=== PATIENT | female | born 1955 | race Caucasian/White ===

== ENCOUNTER 2018-03-06 08:53 | Emergency (ER) | payer OTHER ==
--- NOTE | 2018-03-06 09:01 | PDOC ---
History of Present Illness - General Chief Complaint: Pain Stated Complaint: LEFT SIDE ABD PAIN Time Seen by Provider: 03/06/18 08:56 - History of Present Illness Initial Comments: 03/06/18 09:05 63yo female presents ambulatory for eval of L flank pain. States pain has been intermittently present x 10 days. No n/v. Has had episodes of loose stool and constipation. No f/c. No dysuria. No hematuria. No blood in stool. No new meds. No cp/sob. No cough. No rhinorrhea or sore throat. No vaginal complaints. Pt states pain was severe last night. States the pain kept her up and she called Dr. Beverly who recommended she come in for eval of flank pain. Hx of splenomegaly and myelofibrosis in the past. PMHx: myelofibrosis, splenomegaly PShx: Allergies: PCN Meds: ASA 03/06/18 09:08 PMD: [facility] ONC: Dr. Beverly Past History - Past Medical History Allergies/Adverse Reactions: Allergies Allergy/AdvReac Type Severity Reaction Status Date / Time Penicillins Allergy Rash Verified 03/06/18 08:55 Home Medications: Ambulatory Orders Aspirin 81 mg PO DAILY 08/23/12 Diabetes: No HTN: No - Suicide/Smoking/Psychosocial Hx Smoking Status: No Smoking History: Never smoked Years of Tobacco Use: 0 Number of Cigarettes Smoked Daily: 0 Review of Systems - Review of Systems Able to Perform ROS?: Yes Is the patient limited Gabonese proficient: No Constitutional: No: Chills, Fever HEENTM: No: Nose Pain, Nose Congestion, Throat Pain Respiratory: No: Cough, Shortness of Breath Cardiac (ROS): No: Chest Pain, Irregular Heart Rate ABD/GI: Yes: Constipated, Diarrhea, Abdominal cramping. No: Nausea, Vomiting : No: Burning, Dysuria, Hematuria Musculoskeletal: No: Back Pain Integumentary: No: Bruising Neurological: No: Headache, Numbness, Paresthesia All Other Systems: Reviewed and Negative *Physical Exam - Vital Signs 03/06/18 09:24 Selected Entries 03/06/18 08:54 Temperature 97.6 F Pulse Rate 74 Respiratory 20 Rate Blood Pressure 126/75 Blood Pressure 92 Mean O2 Sat by Pulse 100 Oximetry (%) Weight 58.513 kg - Physical Exam General Appearance: Yes: Nourished, Appropriately Dressed. No: Apparent Distress HEENT: positive: EOMI, Normal ENT Inspection Neck: positive: Supple Respiratory/Chest: positive: Lungs Clear, Normal Breath Sounds Cardiovascular: positive: Regular Rhythm, Regular Rate, S1, S2. negative: Edema Gastrointestinal/Abdominal: positive: Normal Bowel Sounds, Soft, Spleenomegaly. negative: Tender, Guarding, Rebound Musculoskeletal: positive: CVA Tenderness (L). negative: CVA Tenderness (R) Extremity: positive: Normal Capillary Refill, Normal Inspection, Normal Range of Motion. negative: Calf Tenderness Integumentary: positive: Normal Color, Dry, Warm Neurologic: positive: Fully Oriented, Alert, Normal Mood/Affect, Other ( ambulatory with a steady gait) ED Treatment Course - LABORATORY CBC & Chemistry Diagram: 03/06/18 09:25 03/06/18 09:25 Medical Decision Making - Medical Decision Making 03/06/18 09:43 a/p: 63yo female with L sided abd/flank pain -intermittent episodes of diarrhea and constipation -L cva ttp -hx of splenomegaly -concern for constipation, renal colic, uti -will send labs, ct abd/pelvis -nontoxic in appearance -mild cva ttp -no nausea -will monitor and reassess -pt has been ambulatory in the ED with a steady gait 03/06/18 10:35 mildly elevated wbc, no symptoms of infection poss secondary to myelofibrosis/dysplastic disease ct shows hepatosplenomegaly -hemangiomas -calcifications in the appendix without appendicitis -renal stones pulmonary nodule the ct findigns were discussed in great detail with the patint will give GI follow up, urology follow up and follow up with Dr. Beverly pt stable for dc home small amount of blood in the urine - most likely from kidney stones, no infection *DC/Admit/Observation/Transfer Diagnosis at time of Disposition: Abdominal pain, Splenomegaly, Pulmonary nodule, Hematuria - Discharge Dispostion Disposition: HOME Condition at time of disposition: Stable Decision to Admit order: No - Referrals Referrals: Johnny Boyle, TRICIA [Emergency Nurse] - Moses Beverly MD [Staff Physician] - Flash Dominguez MD [Staff Physician] - Kenny Pradhan DO [Staff Physician] - - Patient Instructions Printed Discharge Instructions: DI for Abdominal Pain-Adult Additional Instructions: Please drink plenty of fluids. Please follow up with your PMD in 2-3 days for a repeat evaluation. Please return to the ED with any further concerns or complaints. - Post Discharge Activity
[2018-03-06 09:07] VITALS: BP 126/75; PULSE 74; TEMP 97.6; BMI 20.8
[2018-03-06 09:26] LABS: URINE APPEARANCE Clear; URINE BILIRUBIN Negative (NEGATIVE); URINE COLOR Amber; URINE GLUCOSE (UA) Negative (NEGATIVE); URINE KETONE Negative (NEGATIVE); URINE LEUK ESTERASE Negative (NEGATIVE); URINE NITRITE Negative (NEGATIVE); URINE PROTEIN Negative (NEGATIVE); URINE UROBILINOGEN 0.2 (0.2-1.0)
[2018-03-06 09:39] LABS: AMORP URATES 1+ /hpf (NONE SEEN); URINE WBC 0-2 (0-5)
[2018-03-06 09:45] LABS: HEMATOCRIT 37.9 % (32.4-45.2); HEMOGLOBIN 12.8 GM/dl (10.7-15.3); MCH 33.5 pg (25.7-33.7); MCHC 33.8 g/dl (32.0-36.0); MEAN CELL VOLUME 99.1 fl (80-96); MEAN PLT VOLUME 7.6 fl (7.5-11.1); PLATELET COUNT 237 K/MM3 (134-434); RBC 3.83 M/mm3 (3.60-5.2); RDW 15.4 % (11.6-15.6); WHITE BLOOD COUNT 12.2 K/mm3 (4.0-10.8)
[2018-03-06 09:51] LABS: ALBUMIN 4.4 g/dl (3.4-5.0); ALK PHOS 70 U/L (45-117); ANION GAP 9 MMOL/L (8-16); BILIRUBIN,TOTAL 0.6 mg/dl (0.2-1); BLOOD UREA NITROGEN 19 mg/dl (7-18); CALCIUM 10.4 mg/dl (8.5-10); CHLORIDE 103 mmol/L (98-107); CO2 27 mmol/L (21-32); CREATININE 0.9 mg/dl (0.55-1.3); GLUCOSE,RANDOM 97 mg/dl (74-106); SGOT/AST 19 U/L (15-37); SGPT/ALT 20 U/L (13-61); SODIUM 139 mmol/L (136-145)
[2018-03-06 10:10] LABS: PLATELET ESTIMATE ADEQUATE
[2018-03-06 11:08] LABS: LIPASE 171 U/L (73-393)
== END 2018-03-06 10:47 | disposition home or self-care (01) ==
LOC: FER 08:53 → SUPCPDRO 08:53 → FER 10:47
DX: R10.9 Unspecified abdominal pain (principal); R16.1 Splenomegaly, not elsewhere classified; R91.1 Solitary pulmonary nodule; R31.9 Hematuria, unspecified
CPT/HCPCS: 36415; 74176-TC; 80053; 81003; 81015; 83690; 85025; 99282-25

== ENCOUNTER 2018-03-30 14:47 | Inpatient (IN) | payer OTHER ==
[2018-03-30] MEDS ORDERED: traMADol HCL 50 MG TABLET PO PRN (21:08)
[2018-03-30] MEDS ORDERED: IBUPROFEN 400 MG TABLET (FP) PO ONE (21:15)
[2018-03-31 08:41] LABS: BASO % 0.3 % (0-2.0); EOS % 0.8 % (0-4.5); HEMATOCRIT 33.8 % (32.4-45.2); HEMOGLOBIN 11.8 GM/dL (10.7-15.3); LYMPH % 5.8 % (8-40); MCHC 34.8 g/dl (32.0-36.0); MEAN CELL VOLUME 100.6 fl (80-96); MEAN PLT VOLUME 7.9 fl (7.5-11.1); NEUT % 88.1 % (42.8-82.8); PLATELET COUNT 190 K/MM3 (134-434); RBC 3.36 M/mm3 (3.60-5.2); RDW 16.1 % (11.6-15.6); WHITE BLOOD COUNT 19.4 K/mm3 (4.0-10.0)
--- NOTE | 2018-03-31 09:04 | HP ---
CHIEF COMPLAINT: abdominal pain PCP: Dr. Frederick HISTORY OF PRESENT ILLNESS: The patient is a 63 yo f w/ PMH myelofibrotic syndrome who was sent to the hospital by her scout leaser, Dr. Beverly, for evaluation of plural and pericardial effusions. The patient was seen in [place] ER on 03/06 for abdominal pain. A CT scan done at this time showed multiple splenic infarcts. The patient was placed on ASA 81 for prophylaxis (last took it Thursday) and followed as an outpatient. 2 days ago, the patient went back to Dr. Beverly c/o continued abdominal pain. At this point, Dr. Beverly sent the patient to [place] to get another CT abdomen pelvis. This CT incidentally found a significant pericardial effusion and b/l pleural effusions, Upon receiving this information, Dr. Beverly sent the patient to [facility] for admission and transfer to [facility] for further workup. At the time if interview, the patient denies chest pain, SOB, dyspnea on exertion, orthopnea, decreased exercise tolerance or palpitations. The patient only complains of her moderate abdominal pain which has been unchanged since admission. Recent Travel: none PAST MEDICAL HISTORY: Myelofibrotic syndrome, Dx "several years ago" PAST SURGICAL HISTORY: Left elbox sx s/p fx Social History: Smoking: denies Alcohol: denies Drugs: denies Family History: one daughter w/ ALL, since in remission Allergies peach Allergy (Mild, Verified 03/30/18 21:31) Itching pt states peaches make her start itching Penicillins Allergy (Verified 03/06/18 08:55) Rash HOME MEDICATIONS: Home Medications Medication Instructions Recorded Aspirin 81 mg PO DAILY 08/23/12 REVIEW OF SYSTEMS CONSTITUTIONAL: Absent: fever, chills, diaphoresis, generalized weakness, malaise, loss of appetite, weight change HEENT: Absent: rhinorrhea, nasal congestion, throat pain, throat swelling, difficulty swallowing, mouth swelling, ear pain, eye pain, visual changes CARDIOVASCULAR: Absent: chest pain, syncope, palpitations, irregular heart rate, lightheadedness , peripheral edema RESPIRATORY: Absent: cough, shortness of breath, dyspnea with exertion, orthopnea, wheezing, stridor, hemoptysis GASTROINTESTINAL: Absent: abdominal distension, nausea, vomiting, diarrhea, melena, hematochezia GENITOURINARY: Absent: dysuria, frequency, urgency, hesitancy, hematuria, flank pain, genital pain MUSCULOSKELETAL: Absent: myalgia, arthralgia, joint swelling, back pain, neck pain SKIN: Absent: rash, itching, pallor HEMATOLOGIC/IMMUNOLOGIC: Absent: easy bleeding, easy bruising, lymphadenopathy, frequent infections ENDOCRINE: Absent: unexplained weight gain, unexplained weight loss, heat intolerance, cold intolerance NEUROLOGIC: Absent: headache, focal weakness or paresthesias, dizziness, unsteady gait, seizure, mental status changes, bladder or bowel incontinence PSYCHIATRIC: Absent: anxiety, depression, suicidal or homicidal ideation, hallucinations. PHYSICAL EXAMINATION Vital Signs - 24 hr 03/30/18 03/31/18 03/31/18 20:00 01:47 06:00 Temperature 97.8 F 97.9 F 97.2 F L Pulse Rate 93 H 79 75 Respiratory 18 18 18 Rate Blood Pressure 135/70 127/65 141/71 O2 Sat by Pulse 97 Oximetry (%) GENERAL: Awake, alert, and fully oriented, in no acute distress. HEAD: Normal with no signs of trauma. EYES: Pupils equal, round and reactive to light, extraocular movements intact, sclera anicteric, conjunctiva clear. No lid lag. LUNGS: Decreased breath sounds heard up to the mid lung lord. Apices clear. No wheezes, and no crackles. No accessory muscle use. HEART: Regular rate and rhythm, normal S1 and S2. Early systolic murmur heard all across the precordium without radiation. no rub or gallop. ABDOMEN: Soft, Tenderness to palpation in the RUQ. not distended, normoactive bowel sounds, no guarding, no rebound, no masses. LOWER EXTREMITIES: 2+ pulses, warm, well-perfused. No calf tenderness. No peripheral edema. NEUROLOGICAL: Cranial nerves II-X intact. Normal speech. PSYCHIATRIC: Cooperative. Good eye contact. Appropriate mood and affect. SKIN: Warm, dry, normal turgor, no rashes or lesions noted, normal capillary refill. Laboratory Results - last 24 hr 03/31/18 07:40 WBC 19.4 H RBC 3.36 L Hgb 11.8 Hct 33.8 MCV 100.6 H MCH 35.0 H MCHC 34.8 RDW 16.1 H Plt Count 190 MPV 7.9 Absolute Neuts (auto) 17.1 H Neutrophils % 88.1 H Lymphocytes % 5.8 L Monocytes % 5.0 Eosinophils % 0.8 Basophils % 0.3 Nucleated RBC % 0 ASSESSMENT/PLAN: The patient is a 63 yo f w/ PMH Myelofibrosis who was sent to the hospital by her scout leaser for an incidental finding of pleural and pericardial effusion on CT. #effusions on CT -eitology unclear at this time; viral illness, malignancy, autoimmune process on the list of differentials -will order Echo to eval cardiac fxn -will order CT Chest w/o contrast to eval plural effusions -pulmonary consult -cardiology consult -There is a possibility of diagnostic tap, but will await cardio/pulm input before proceeding. #leukocytosis w/ neutrophillia -possibly reactive to ongoing disease process vs viral process -WBC count not high enough to indicate conversion to leukemia -patient afebrile; no indication for ABX at this time -monitor daily #FEN -no fluids indicated -lytes WNL -regular diet; will make patient NPO if there is a procedure planned #Prophy -Lovenox 40mg SQ daily as patient at high risk for VTE -will hold AC once procedure scheduled #dispo -admit med surg -home medications verified with patient. Visit type - Emergency Visit Emergency Visit: Yes ED Registration Date: 03/30/18 Care time: The patient presented to the Emergency Department on the above date and was hospitalized for further evaluation of their emergent condition. - New Patient This patient is new to me today: Yes Date on this admission: 03/31/18 - Critical Care Critical Care patient: No
[2018-03-31 09:08] LABS: ALBUMIN 3.7 g/dl (3.4-5.0); ALK PHOS 92 U/L (45-117); ANION GAP 6 MMOL/L (8-16); BILIRUBIN,DIRECT 0.1 mg/dL (0.0-0.2); BILIRUBIN,TOTAL 0.5 mg/dL (0.2-1); BLOOD UREA NITROGEN 17 mg/dL (7-18); CALCIUM 10.1 mg/dL (8.5-10.1); CHLORIDE 107 mmol/L (98-107); CO2 28 mmol/L (21-32); CREATININE 0.9 mg/dL (0.55-1.3); GLUCOSE,RANDOM 85 mg/dL (74-106); POTASSIUM 4.7 mmol/L (3.5-5.1); SGOT/AST 13 U/L (15-37); SGPT/ALT 20 U/L (13-61); SODIUM 142 mmol/L (136-145); TOT PROT 6.7 g/dl (6.4-8.2)
[2018-03-31 09:19] LABS: INR 1.13 (0.83-1.09); PROTHROMBIN TIME (PATIENT) 13.4 SEC (9.7-13.0)
[2018-03-31 09:22] LABS: ACTIVATED PTT 30.2 SECONDS (25.2-36.5)
--- NOTE | 2018-03-31 10:23 | PN ---
Teaching Attending Note Name of Resident: Chavo Lan ATTENDING PHYSICIAN STATEMENT I saw and evaluated the patient. I reviewed the resident's note and discussed the case with the resident. I agree with the resident's findings and plan as documented. SUBJECTIVE: This is a 63 year old woman with a history of myelofibrosis who was sent to the hospital for admission by Dr. Beverly for evaluation of pleural and pericardial effusions. She reports having abdominal pain for about 1 month. She was seen in the [place] ED on 03/[address] showed multiple splenic infarcts. She was started on baby aspirin daily and and followed up with Dr. Beverly. Since she was still having abdominal pain, CT of the abdomen/pelvis was repeated on 03/29 showing bilateral pleural effusions, a significant pericardial effusion, hepatsplenomegaly, a small hypodensity in the liver, multiple lesions in the spleen, a calcified splenic artery aneurysm, possible gallstone, 8.4 mm CBD, a small focal lesion in the body of the pancreas, small bilateral renal cysts. She continues to have abdominal pain. She reports weight loss over the past month. She denies nausea, vomiting, melena, rectal bleeding, chest pain, palpitations, SOB, cough, fever, chills, night sweats. OBJECTIVE: Vital Signs Period Temp Pulse Resp BP Sys/Corbett Pulse Ox Last 24 Hr 97.2 F-97.9 F 75-93 18-18 127-141/65-71 97 HEART: S1S2, RRR, (+) 3/6 SM LUNGS: Clear with decreased BS at bases ABDOMEN: Soft, non-distended, (+) LUQ tenderness, normal BS EXTREMITIES: No edema Laboratory Tests 03/31/18 03/31/18 03/31/18 07:40 07:40 07:40 WBC 19.4 H RBC 3.36 L Hgb 11.8 Hct 33.8 MCV 100.6 H MCH 35.0 H MCHC 34.8 RDW 16.1 H Plt Count 190 MPV 7.9 Absolute Neuts (auto) 17.1 H Neutrophils % 88.1 H Lymphocytes % 5.8 L Monocytes % 5.0 Eosinophils % 0.8 Basophils % 0.3 Nucleated RBC % 0 PT with INR 13.40 H INR 1.13 H PTT (Actin FS) 30.2 Sodium 142 Potassium 4.7 Chloride 107 Carbon Dioxide 28 Anion Gap 6 L BUN 17 Creatinine 0.9 Creat Clearance w eGFR > 60 Random Glucose 85 Calcium 10.1 Total Bilirubin 0.5 Direct Bilirubin 0.1 AST 13 L ALT 20 Alkaline Phosphatase 92 Total Protein 6.7 Albumin 3.7 ASSESSMENT AND PLAN: This is a 63 year old woman with a history of myelofibrosis who was sent to the hospital for admission by Dr. Beverly for evaluation of pleural and pericardial effusions. 1. Bilateral pleural effusions, pericardial effusion - Clinically no evidence of tamponade - Etiology unclear - Chest CT, echocardiogram - Pulmonary, cardiology consults 2. Leukocytosis - Patient has had increasing WBC in setting of myelofibrosis - Monitor WBC - Hematology evaluation if no infection found in work up of effusions 3. Myelofibrosis with splenic infarcts - Hold aspirin for possible thoracentesis 4. Possible gallstone with dilated CBD - LFTs are normal - RUQ US
[2018-03-31] MEDS: ENOXAPARIN NA (PORCINE) 40 MG/0.4 ML DISP.SYRIN SQ SCH (10:32)
[2018-03-31 13:02] LABS: ANISOCYTOSIS 1+; MACROCYTOSIS 1+; PLATELET ESTIMATE NORMAL; TEAR DROP CELLS 1+
--- NOTE | 2018-03-31 13:16 | CON.PULM ---
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 Has been having 1 month of LUQ pain/discomfort. CT abdomen/pelvis imaging revealed multiple splenic infarcts and she was subsequently started on ASA 81mg. Has been splinting due to the pain. Minimal dry cough. No fever or chills. No night sweats or hemoptysis. CT chest: small to moderate pleural effusions: Left > right with associated compressive atelectasis. Pericardial effusion. No travel history or sick contacts. - History Source History Provided By: Patient Limitations to Obtaining History: No Limitations - Past Medical History Pulmonary: No: Asthma, Bronchitis, Cancer, COPD, O2 Dependent, Pneumonia, Previously Intubated, Pulmonary Embolus, Pulmonary Fibrosis, Sleep Apnea - Alcohol/Substance Use Hx Alcohol Use: No - Smoking History Smoking history: Never smoked Have you smoked in the past 12 months: No Aproximately how many cigarettes per day: 0 Home Medications - Allergies Allergies/Adverse Reactions: Allergies Allergy/AdvReac Type Severity Reaction Status Date / Time peach Allergy Mild Itching Verified 03/30/18 21:31 Penicillins Allergy Rash Verified 03/06/18 08:55 - Home Medications Home Medications: Ambulatory Orders Aspirin 81 mg PO DAILY 08/23/12 Review of Systems - Review of Systems Constitutional: reports: Malaise. denies: Chills, Fever, Loss of Appetite, Night Sweats Eyes: reports: No Symptoms HENT: reports: No Symptoms Neck: reports: No Symptoms Cardiovascular: denies: Chest Pain, Edema, Palpitations, Shortness of Breath Respiratory: reports: Cough. denies: Hemoptysis, Orthopnea, PND, Snoring, SOB, SOB on Exertion, Wheezing Gastrointestinal: reports: Abdominal Pain. denies: Melena, Rectal Bleeding, Vomiting, Vomiting Blood Genitourinary: reports: No Symptoms Breasts: reports: No Symptoms Reported Musculoskeletal: reports: No Symptoms Integumentary: reports: No Symptoms Neurological: reports: No Symptoms Endocrine: reports: No Symptoms Hematology/Lymphatic: reports: No Symptoms Psychiatric: reports: No Symptoms Physical Exam Vital Sings: Vital Signs Temperature 98.2 F 03/31/18 10:00 Pulse Rate 78 02/20/19 10:00 Respiratory Rate 18 03/31/18 10:00 Blood Pressure 147/69 03/31/18 10:00 O2 Sat by Pulse Oximetry (%) 98 03/31/18 09:00 Constitutional: Yes: No Distress Eyes: Yes: Conjunctiva Clear, EOM Intact HENT: Yes: Atraumatic, Normocephalic Neck: Yes: Supple, Trachea Midline Cardiovascular: Yes: Regular Rate and Rhythm Respiratory: Yes: CTA Bilaterally ...Inspection: Yes: WNL ...Clubbing: No Gastrointestinal: Yes: Normal Bowel Sounds, Soft Renal/: Yes: WNL Musculoskeletal: Yes: WNL Extremities: Yes: WNL Edema: No Peripheral Pulses WNL: Yes Integumentary: Yes: WNL Neurological: Yes: WNL, Alert, Oriented ...Motor Strength: WNL Psychiatric: Yes: WNL, Alert, Oriented Labs: CBC, BMP 03/31/18 07:40 03/31/18 07:40 Imaging - Results Cat Scan: Report Reviewed, Image Reviewed Problem List - Problems (1) Bilateral pleural effusion Code(s): J90 - PLEURAL EFFUSION, NOT ELSEWHERE CLASSIFIED (2) Atelectasis of both lungs Code(s): J98.11 - ATELECTASIS (3) Pericardial effusion Code(s): I31.3 - PERICARDIAL EFFUSION (NONINFLAMMATORY) (4) Abdominal pain Code(s): R10.9 - UNSPECIFIED ABDOMINAL PAIN (5) Splenomegaly Code(s): R16.1 - SPLENOMEGALY, NOT ELSEWHERE CLASSIFIED Assessment/Plan Check ECHO (no clinical indication of tamponade physiology) Hematologic workup per Heme Incentive Spirometry Monitor off ABX May require fluid sampling most likely from the left effusion. 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 Do not suspect infection. Pleural effusions may be explained by a month long of abdominal pain and splinting but will not cause a pericardial effusion Will follow Thank you. Dr Wilson
--- NOTE | 2018-03-31 15:13 | CON.CARD ---
Consult Consult Specialty:: Cardiology Referred by:: Moses Beverly Reason for Consultation:: pericardial effusion - History of Present Illness Chief Complaint: Abdominal pain History of Present Illness: 63 year old female with a pmhx of myelofibrotic syndrome and second hand smoke exposure who has been suffering from LUQ abdominal pain for 4-5 weeks diagnosed with splenic infarcts on CT scan February who went for repeat imaging due to persistent pain and found to have pleural and pericardial effusions. Patient denies any chest pain or sob. No pnd, orthopnea, or edema. No palpitations. 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 No complaints except for some LUQ pain. No recent viral illnesses - History Source History Provided By: Patient, Medical Record - Past Medical History Pulmonary: No: Asthma, Bronchitis, Cancer, COPD, O2 Dependent, Pneumonia, Previously Intubated, Pulmonary Embolus, Pulmonary Fibrosis, Sleep Apnea - Alcohol/Substance Use Hx Alcohol Use: No - Smoking History Smoking history: Never smoked Have you smoked in the past 12 months: No Aproximately how many cigarettes per day: 0 Home Medications - Allergies Allergies/Adverse Reactions: Allergies Allergy/AdvReac Type Severity Reaction Status Date / Time peach Allergy Mild Itching Verified 03/30/18 21:31 Penicillins Allergy Rash Verified 03/06/18 08:55 - Home Medications Home Medications: Ambulatory Orders Aspirin 81 mg PO DAILY 08/23/12 Vital Signs: Vital Signs Temperature 97.8 F 03/31/18 13:46 Pulse Rate 88 03/31/18 13:46 Respiratory Rate 20 03/31/18 13:46 Blood Pressure 133/63 03/31/18 13:46 O2 Sat by Pulse Oximetry (%) 98 03/31/18 09:00 Constitutional: Yes: No Distress Neck: Yes: Supple Respiratory: Yes: Diminished (bases) Gastrointestinal: Yes: Soft Cardiovascular: Yes: Regular Rate and Rhythm JVD: No Carotid Bruit: No PMI: Non-Displaced Heart Sounds: Yes: S1, S2 Murmur: Yes: Systolic Murmur (+2/6 HSM throughout greatest at LLSB) - Other Data Labs, Other Data: CBC, BMP 03/31/18 07:40 03/31/18 07:40 INR, PTT INR 1.13 (0.83-1.09) H 03/31/18 07:40 Imaging - Results Chest X-ray: Report Reviewed Cat Scan: Report Reviewed Assessment/Plan 63 year old female with a pmhx of myelofibrotic syndrome and second hand smoke exposure who has been suffering from LUQ abdominal pain for 4-5 weeks diagnosed with splenic infarcts on CT scan February who went for repeat imaging due to persistent pain and found to have pleural and pericardial effusions. Patient denies any chest pain or sob. No pnd, orthopnea, or edema. No palpitations. 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 No complaints except for some LUQ pain. No recent viral illnesses 1) Pericardial effusion No signs of tamponade on physical exam and without any symptoms. No JVD or distant heart sounds. No positional symptoms or chest pain. No recent viral illnesses Plan for echocardiogram to assess pericardial effusion EKG 12 lead please autoimmune lab work up and esr/crp F/u with pulmonary.
[2018-03-31] MEDS: ACETAMINOPHEN 325 MG TABLET (FP) PO PRN ×3 (16:04→23:37)
[2018-03-31] MEDS ORDERED: NAPROXEN 500 MG TABLET (FP) PO ONE (18:33)
[2018-03-31] MEDS ORDERED: oxyCODONE HCL 5 MG TABLET PO ONE (18:36)
[2018-03-31] MEDS ORDERED: MELATONIN 5 MG TABLETS PO ONE (23:30)
--- NOTE | 2018-04-01 01:30 | ECHO ---
Version: 1 Name: HECTOR SELBY Exam: Adult Echocardiogram Study Date: 03/31/2018, 11:49 AM Age: 63 Years MMode/2D Measurements & Calculations Ao root diam: 3.0 cm Doppler Measurements & Calculations MV E max yaron: 70.4 cm/sec Med E/e': 11.8 MV A max yaron: 108.3 cm/sec Med Peak E' Yaron: 6.0 cm/sec MV E/A: 0.65 Lat E/e': 11.8 Lat Peak E' Yaron: 6.0 cm/sec TR max yaron: 238.9 cm/sec TR max P.3 mmHg Procedure The study was technically difficult with many images being suboptimal in quality. Left Ventricle The left ventricle is normal in size. There is mild concentric left ventricular hypertrophy. The lef t ventricular ejection fraction is normal. Ejection Fraction = 60%. E/A reversal consistent with but n ot diagnostic of poor LV compliance. The left ventricular wall motion is normal. Mitral Valve There is trace to mild mitral regurgitation. Tricuspid Valve There is mild to moderate tricuspid regurgitation. Right ventricular systolic pressure is elevated a t 28.6 mmhg. Aortic Valve The aortic valve is not well visualized. Pulmonic Valve Mild to moderate pulmonic valvular regurgitation. Great Vessels The aortic root is normal size. Pericardium/Pleura Trivial to small pericardial effusion which is not hemodynamically significant. Summary Statements The left ventricle is normal in size. E/A reversal consistent with but not diagnostic of poor LV compliance There is mild concentric left ventricular hypertrophy. The left ventricular ejection fraction is normal. Ejection Fraction = 60%. The left ventricular wall motion is normal. The study was technically difficult with many images being suboptimal in quality. Trivial to small pericardial effusion which is not hemodynamically significant. Mild to moderate pulmonic valvular regurgitation. There is mild to moderate tricuspid regurgitation. The aortic root is normal size. There is trace to mild mitral regurgitation. Right ventricular systolic pressure is elevated at 28.6 mmhg. The aortic valve is not well visualized. Cam Noonan MD 04/01/2018, 1:29 AM Ordering Physician: Chavo Lan Performed By: Delia Avila
--- NOTE | 2018-04-01 02:34 | EKG ---
Test Reason : Blood Pressure : / mmHG Vent. Rate : 080 BPM Atrial Rate : 080 BPM P-R Int : 162 ms QRS Dur : 086 ms QT Int : 374 ms P-R-T Axes : 071 057 075 degrees QTc Int : 431 ms NORMAL SINUS RHYTHM VOLTAGE CRITERIA FOR LEFT VENTRICULAR HYPERTROPHY ABNORMAL ECG NO PREVIOUS ECGS AVAILABLE Confirmed by ABDIRASHID CASILLAS MD ([id number]) on 04/01/2018 2:34:18 AM Referred By: MARTIN FUNG Confirmed By:ABDIRASHID CASILLAS MD
[2018-04-01 07:27] LABS: HEMATOCRIT 32.6 % (32.4-45.2); HEMOGLOBIN 11.3 GM/dL (10.7-15.3); MCH 34.5 pg (25.7-33.7); MCHC 34.6 g/dl (32.0-36.0); MEAN CELL VOLUME 99.6 fl (80-96); MEAN PLT VOLUME 7.7 fl (7.5-11.1); PLATELET COUNT 200 K/MM3 (134-434); RBC 3.27 M/mm3 (3.60-5.2); RDW 16.2 % (11.6-15.6); WHITE BLOOD COUNT 20.3 K/mm3 (4.0-10.0)
[2018-04-01 07:49] LABS: INR 1.13 (0.83-1.09); PROTHROMBIN TIME (PATIENT) 13.3 SEC (9.7-13.0)
[2018-04-01 08:00] LABS: ANION GAP 7 MMOL/L (8-16); BLOOD UREA NITROGEN 23 mg/dL (7-18); CALCIUM 9.9 mg/dL (8.5-10.1); CHLORIDE 106 mmol/L (98-107); CO2 27 mmol/L (21-32); CREATININE 0.9 mg/dL (0.55-1.3); GLUCOSE,RANDOM 94 mg/dL (74-106); MAGNESIUM 2.4 mg/dL (1.8-2.4); PHOSPHOROUS 3.9 mg/dL (2.5-4.9); SODIUM 140 mmol/L (136-145)
--- NOTE | 2018-04-01 08:25 | PN ---
Physical Exam: SUBJECTIVE: Patient seen this morning with complaints of wanting to leave. She denies shortness of breath, palpitations, or chest pain. NO events overnight. Patient to have an ultrasound this morning. OBJECTIVE: Vital Signs Temperature 98.3 F 04/01/18 06:00 Pulse Rate 81 04/01/18 06:00 Respiratory Rate 20 04/01/18 06:00 Blood Pressure 131/77 04/01/18 06:00 O2 Sat by Pulse Oximetry (%) 99 03/31/18 21:00 GENERAL: The patient is awake, alert, and fully oriented, in no acute distress. HEAD: Normal with no signs of trauma. EYES: PERRL, extraocular movements intact, NECK: Trachea midline, full range of motion, supple. LUNGS: Breath sounds equal, clear to auscultation bilaterally, no crackles HEART: Regular rate and rhythm, S1, S2 no alternans heard ABDOMEN: Soft, nontender, nondistended, normoactive bowel sounds EXTREMITIES: 2+ pulses, warm, well-perfused, no edema. PSYCH: Normal mood, normal affect. SKIN: Warm, dry, normal turgor, no rashes or lesions noted CBC, BMP 04/01/18 06:20 04/01/18 06:20 Active Medications Acetaminophen (Tylenol -) 650 mg PO Q6H PRN PRN Reason: PAIN LEVEL 6-10 Last Admin: 03/31/18 23:37 Dose: 650 mg Enoxaparin Sodium (Lovenox -) 40 mg SQ DAILY TALAT Last Admin: 03/31/18 10:32 Dose: 40 mg Tramadol HCl (Ultram -) 50 mg PO Q6H PRN PRN Reason: PAIN SCALE 6-10 ASSESSMENT/PLAN: Patient is a 63 y/o with myelofibrosis who is admitted for pleural and pericardial effusion. #pericardial effusion - f/u cardio, Dr. Flood - EKG shown no alternans - echo: trivial to small pericardial effusion, moderate pulmonic valve - PE: no signs of tamponade - no recent viral illnes - CRP negative, ESR 36 - consider tumor makers, oncology work up for effusions #pleural effusion - f/u pulm, Dr. Wilson - incentive spirometry - possible from abdominal pain, splinting #abd pain - splenic infarct, continue aspirin - CBD dilated, 11mm gallstone - elective outpatient cholecystectomy #myelofibrosis - spoke to Dr. Baez - continue aspirin #DVT - ppx lovenox Dispo: f/u donte, consider further workup Visit type - Emergency Visit Emergency Visit: No - New Patient This patient is new to me today: Yes Date on this admission: 04/01/18 - Critical Care Critical Care patient: No
[2018-04-01] MEDS: ENOXAPARIN NA (PORCINE) 40 MG/0.4 ML DISP.SYRIN SQ SCH (09:55)
--- NOTE | 2018-04-01 12:30 | PN ---
Teaching Attending Note Name of Resident: Dior Mckeon ATTENDING PHYSICIAN STATEMENT I saw and evaluated the patient. I reviewed the resident's note and discussed the case with the resident. I agree with the resident's findings and plan as documented. SUBJECTIVE:has continued L flank pain which she states is chronic and has not changed in nature. denies CP, SOB, fever, chills, N/V/C/D, recent infection or sick contacts. no recent body aches, cough, fever, chills. states she works out regularly and never has any symptoms OBJECTIVE: Last Vital Signs Temp Pulse Resp BP Pulse Ox 98.0 F 81 18 147/77 97 04/01/18 10:00 04/01/18 10:00 04/01/18 10:00 04/01/18 10:00 04/01/18 09:00 General NAD CV S1 S2 RRR no murmur/rub/gallop Lungs decreased L base, no crackles or wheezing Abdomen +diffuse tenderness worse in the LUQ. negative anton sign no rebound or guarding ASSESSMENT AND PLAN: 63 yo F with PMH myelofibrosis who was sent to the hospital for admission by Dr. Beverly for evaluation of pleural and pericardial effusions. 1. Bilateral pleural effusions, pericardial effusion- hemodynamically stable. no signs of tamponade. Echo showing small or trivial pericardial effusion. small to mod effusion. could be sign of extramedullary hematopoesis. will d/w with pulm about thoracentesis to run cytology and r/o other etiology. doubt this to be infectious. 2. Leukocytosis- Patient has had increasing WBC in setting of myelofibrosis. no signs of infection. 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 Myelofibrosis with splenic infarcts- Hold aspirin for possible thoracentesis 4. Dilated CBD- seen on CT. pt is not symptomatic and LFT are normal. obtain abdominal u/s to r/o choleodocholithasis 5. DVT ppx- lovenox
[2018-04-01] MEDS ORDERED: IBUPROFEN 600 MG TABLET (FP) PO PRN (14:03)
[2018-04-01 14:04] VITALS: BP 138/77; PULSE 90; TEMP 98.2
--- NOTE | 2018-04-01 14:10 | PN ---
Progress Note (short form) - Note Progress Note: Feels well. No CP or SOB. No acute events overnight. Afebrile. ECHO: minimal to small pericardial effusion. Intake & Output 03/29/18 03/30/18 03/31/18 04/01/18 23:59 23:59 23:59 23:59 Intake Total 500 1440 500 Output Total 3 Balance 500 1437 500 Weight 120 lb 7 oz Last Vital Signs Temp Pulse Resp BP Pulse Ox 98.2 F 90 20 138/77 97 04/01/18 14:02 04/01/18 14:02 04/01/18 14:02 04/01/18 14:02 04/01/18 09:00 Active Medications Acetaminophen (Tylenol -) 650 mg PO Q6H PRN PRN Reason: PAIN LEVEL 6-10 Last Admin: 03/31/18 23:37 Dose: 650 mg Enoxaparin Sodium (Lovenox -) 40 mg SQ DAILY TALAT Last Admin: 04/01/18 09:55 Dose: 40 mg Ibuprofen (Motrin -) 600 mg PO Q6H PRN PRN Reason: FEVER Tramadol HCl (Ultram -) 50 mg PO Q6H PRN PRN Reason: PAIN SCALE 6-10 Constitutional: Yes: No Distress Eyes: Yes: Conjunctiva Clear, EOM Intact HENT: Yes: Atraumatic, Normocephalic Neck: Yes: Supple, Trachea Midline Cardiovascular: Yes: Regular Rate and Rhythm Respiratory: Yes: CTA Bilaterally ...Inspection: Yes: WNL ...Clubbing: No Gastrointestinal: Yes: Normal Bowel Sounds, Soft Renal/: Yes: WNL Musculoskeletal: Yes: WNL Extremities: Yes: WNL Edema: No Peripheral Pulses WNL: Yes Integumentary: Yes: WNL Neurological: Yes: WNL, Alert, Oriented ...Motor Strength: WNL Psychiatric: Yes: WNL, Alert, Oriented Labs: Laboratory Results - last 24 hr 04/01/18 04/01/18 04/01/18 06:20 06:20 06:20 WBC 20.3 H RBC 3.27 L Hgb 11.3 Hct 32.6 MCV 99.6 H MCH 34.5 H MCHC 34.6 RDW 16.2 H Plt Count 200 MPV 7.7 ESR PT with INR 13.30 H INR 1.13 H Sodium 140 Potassium 4.0 Chloride 106 Carbon Dioxide 27 Anion Gap 7 L BUN 23 H Creatinine 0.9 Creat Clearance w eGFR > 60 Random Glucose 94 Calcium 9.9 Phosphorus 3.9 Magnesium 2.4 C-Reactive Protein 0.7 H 04/01/18 06:30 WBC RBC Hgb Hct MCV MCH MCHC RDW Plt Count MPV ESR 36 H PT with INR INR Sodium Potassium Chloride Carbon Dioxide Anion Gap BUN Creatinine Creat Clearance w eGFR Random Glucose Calcium Phosphorus Magnesium C-Reactive Protein Problem List - Problems (1) Bilateral pleural effusion Code(s): J90 - PLEURAL EFFUSION, NOT ELSEWHERE CLASSIFIED (2) Atelectasis of both lungs Code(s): J98.11 - ATELECTASIS (3) Pericardial effusion Code(s): I31.3 - PERICARDIAL EFFUSION (NONINFLAMMATORY) (4) Abdominal pain Code(s): R10.9 - UNSPECIFIED ABDOMINAL PAIN (5) Splenomegaly Code(s): R16.1 - SPLENOMEGALY, NOT ELSEWHERE CLASSIFIED Assessment/Plan Incentive Spirometry Monitor off ABX D/W Dr Beverly and Debbie. The pleural effusions may just be secondary to abdominal pain and splinting. Can repeat CXR (PA & lateral) and ECHO in 4 weeks (or sooner if the patient is symptomatic). Pain control per primary team There is no Pulmonary contraindication for D/C home. Dr Wilson Problem List - Problems (1) Bilateral pleural effusion Code(s): J90 - PLEURAL EFFUSION, NOT ELSEWHERE CLASSIFIED (2) Atelectasis of both lungs Code(s): J98.11 - ATELECTASIS (3) Pericardial effusion Code(s): I31.3 - PERICARDIAL EFFUSION (NONINFLAMMATORY) (4) Abdominal pain Code(s): R10.9 - UNSPECIFIED ABDOMINAL PAIN (5) Splenomegaly Code(s): R16.1 - SPLENOMEGALY, NOT ELSEWHERE CLASSIFIED
--- NOTE | 2018-04-01 14:11 | PN ---
Progress Note, Physician Chief Complaint: Abdominal discomfort History of Present Illness: 63 year old female with a pmhx of myelofibrotic syndrome and second hand smoke exposure who has been suffering from LUQ abdominal pain for 4-5 weeks diagnosed with splenic infarcts on CT scan February who went for repeat imaging due to persistent pain and found to have pleural and pericardial effusions. Patient denies any chest pain or sob. No pnd, orthopnea, or edema. No palpitations. 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 No complaints except for some LUQ pain. No recent viral illnesses - Current Medication List Current Medications: Active Medications Acetaminophen (Tylenol -) 650 mg PO Q6H PRN PRN Reason: PAIN LEVEL 6-10 Last Admin: 03/31/18 23:37 Dose: 650 mg Enoxaparin Sodium (Lovenox -) 40 mg SQ DAILY TALAT Last Admin: 04/01/18 09:55 Dose: 40 mg Ibuprofen (Motrin -) 600 mg PO Q6H PRN PRN Reason: FEVER Tramadol HCl (Ultram -) 50 mg PO Q6H PRN PRN Reason: PAIN SCALE 6-10 - Objective Vital Signs: Vital Signs Temperature 98.2 F 04/01/18 14:02 Pulse Rate 90 04/01/18 14:02 Respiratory Rate 04/01/18 14:02 Blood Pressure 138/77 04/01/18 14:02 O2 Sat by Pulse Oximetry (%) 97 04/01/18 09:00 Constitutional: Yes: No Distress Neck: Yes: Supple Cardiovascular: Yes: Regular Rate and Rhythm, S1, S2. No: JVD Respiratory: Yes: Diminished (decreased BS bases) Gastrointestinal: Yes: Tenderness Edema: No Labs: CBC, BMP 04/01/18 06:20 04/01/18 06:20 INR, PTT INR 1.13 (0.83-1.09) H 04/01/18 06:20 Assessment/Plan 63 year old female with a pmhx of myelofibrotic syndrome and second hand smoke exposure who has been suffering from LUQ abdominal pain for 4-5 weeks diagnosed with splenic infarcts on CT scan February who went for repeat imaging due to persistent pain and found to have pleural and pericardial effusions. Patient denies any chest pain or sob. No pnd, orthopnea, or edema. No palpitations. 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 No complaints except for some LUQ pain. No recent viral illnesses 1) Pericardial effusion No signs of tamponade on physical exam and without any symptoms. No JVD or distant heart sounds. No positional symptoms or chest pain. No recent viral illnesses Echo with trivial to small pericardial effusion heme, autoimmune lab work up and esr/crp Routine malignancy work up F/u as outpatient for repeat echo in future. If gets pleural fluid tapped in future send for cytology Will sign off please make her an appt with Dr. Starkey for follow up visit.
[2018-04-01 15:37] VITALS: BMI 19.3
--- NOTE | 2018-04-01 15:40 | DS ---
Physical Exam: SUBJECTIVE: Patient seen this morning with complaints of wanting to leave. She denies shortness of breath, palpitations, or chest pain. NO events overnight. Patient to have an ultrasound this morning. OBJECTIVE: Vital Signs Temperature 98.2 F 04/01/18 14:02 Pulse Rate 90 04/01/18 14:02 Respiratory Rate 20 04/01/18 14:02 Blood Pressure 138/77 04/01/18 14:02 O2 Sat by Pulse Oximetry (%) 97 04/01/18 09:00 PHYSICAL EXAM GENERAL: The patient is awake, alert, and fully oriented, in no acute distress. HEAD: Normal with no signs of trauma. EYES: PERRL, extraocular movements intact, NECK: Trachea midline, full range of motion, supple. LUNGS: Breath sounds equal, clear to auscultation bilaterally, no crackles HEART: Regular rate and rhythm, S1, S2 no alternans heard ABDOMEN: Soft, nontender, nondistended, normoactive bowel sounds EXTREMITIES: 2+ pulses, warm, well-perfused, no edema. PSYCH: Normal mood, normal affect. SKIN: Warm, dry, normal turgor, no rashes or lesions noted LABS CBC, BMP 04/01/18 06:20 04/01/18 06:20 HOSPITAL COURSE: Date of Admission:03/30/18 Patient admitted for pericardial effusion and pleural effusion. Patient has a history of myelofibrosis. Patient evaluated by cardiology and stable, echo showed mild effusion. Patient evaluated by Pulmonology and effusion thought to be due to splinting. Patient abdominal pain attributed to splenic infarct. Patient found to have 11 mm gall stone. Patient vitals stable for discharge. Per hematology only on aspirin, patient will continue as an outpatient. echo: trivial to small pericardial effusion, moderate pulmonic valve EKG: no alternans, no st elevations Chest CT: small to moderate pleural effusions with compression atelectasis, left axillary adenopathy, splenomegaly US: mild hepatomegaly with mild increased echotexturem gallbladder stone measuring 11 mm, no CBD dilitation Date of Discharge: 04/01/18 Minutes to complete discharge: 45 Discharge Summary Reason For Visit: MYOFIBROSIS Condition: Good - Instructions Diet, Activity, Other Instructions: You were admitted to the hospital for fluid found in your heart and lungs. The Grommet Machine Operator evaluated you and the amount of fluid is not affecting the function of your heart. You should make an appointment to follow up with the physician within one week. The fluid in your lungs was a result of the pain you have in your abdomen. You were evaluated by Pulmonology and this fluid will resolve with time. Please take with you the spirometer and use it once an hour to help your lungs recover. Please have a repeat Chest Xray (of your lungs) in one month. Please make an appointment to follow up with Dr. Beverly in one week. Please continue your home medications as prescribed. (Aspirin 81mg Daily). For your pain you should use tylenol and motrin which are over the counter. Do not exceed 4grams of tylenol per day as this can cause a lot of damage to your liver. For any pain you have please use tylenol and motrin. Alternate using both medications, do not exceed 2400 mg of tylenol a day and do no exceed 800 mg of motrin in one day. Return to the Emergency Department if you are having nausea, vomiting, shortness of breath, palpitations, dizziness, chest pain, or headaches. Referrals: Konstantin Daniel MD [Staff Physician] - Moses Beverly MD [Staff Physician] - Bruno Wilson MD [Staff Physician] - Disposition: HOME - Home Medications Comprehensive Discharge Medication List: Ambulatory Orders Aspirin 81 mg PO DAILY 08/23/12 This patient is new to me today: Yes Date on this admission: 04/01/18 Emergency Visit: No Critical Care patient: No - Discharge Referral Referred to [facility] No
== END 2018-04-01 18:39 | disposition home or self-care (01) | DRG 187 ==
LOC: J7W 18:34
PROVIDERS: ADMIT Internal Medicine Hematology & Oncology; ATTEND Internal Medicine
DX: J90 Pleural effusion, not elsewhere classified (principal); I31.3 Pericardial effusion (noninflammatory); D75.81 Myelofibrosis; J98.11 Atelectasis; D72.829 Elevated white blood cell count, unspecified; N28.1 Cyst of kidney, acquired; D73.89 Other diseases of spleen; K80.50 Calculus of bile duct without cholangitis or cholecystitis without obstruction; R16.1 Splenomegaly, not elsewhere classified; R10.9 Unspecified abdominal pain; D70.4 Cyclic neutropenia
CPT/HCPCS: 36415; 71250-TC; 76705-TC; 80048; 80076; 83735; 84100; 85025; 85027; 85610; 85651; 85730; 86140; 93005; 93010; 93306-TC; 94010

== ENCOUNTER 2018-06-14 02:08 | Emergency (ER) | payer OTHER ==
--- NOTE | 2018-06-14 02:10 | PDOC ---
History of Present Illness - General Stated Complaint: PAIN History Source: Patient - History of Present Illness Initial Comments: 06/14/18 02:25 The patient is a 63 year old female with a PMH of MDS who presents to our ED c/ o two day h/o of L flank pain. Pain is constant, worse with laying supine. Denies any associated nausea/vomiting, diarrhea/constipation, dysuria/hematuria , fevers/chills. States she took 3 Motrin overnight with little relief of her symptoms. As per EMR, patient last evaluated in our ED in 02/2018 for L flank pain. CT showed hepatosplenomegaly (chronic), UA clean. Patient discharged home. Past History - Past Medical History Allergies/Adverse Reactions: Allergies Allergy/AdvReac Type Severity Reaction Status Date / Time peach Allergy Mild Itching Verified 06/14/18 02:23 Penicillins Allergy Rash Verified 06/14/18 02:23 Home Medications: Ambulatory Orders Aspirin 81 mg PO DAILY 08/23/12 Fentanyl 25 mcg TD ASDIR #10 patch.[id number] MDD 1 06/14/18 COPD: No Diabetes: No HTN: No - Surgical History Orthopedic Surgery: Yes (ELBOW SX X 1 YEAR AGO) - Suicide/Smoking/Psychosocial Hx Smoking Status: No Smoking History: Never smoked Years of Tobacco Use: 0 Have you smoked in the past 12 months: No Number of Cigarettes Smoked Daily: 0 Hx Alcohol Use: No Drug/Substance Use Hx: No Substance Use Type: None Hx Substance Use Treatment: No Review of Systems - Review of Systems Constitutional: No: Chills, Fever HEENTM: No: Recent change in vision Respiratory: No: Cough, Shortness of Breath Cardiac (ROS): No: Chest Pain, Lightheadedness, Palpitations, Syncope ABD/GI: Yes: Nausea. No: Constipated, Diarrhea, Vomiting *Physical Exam - Physical Exam General Appearance: Yes: Nourished, Thin HEENT: positive: Normal Voice, Hearing Grossly Normal Neck: positive: Trachea midline, Supple Respiratory/Chest: positive: Lungs Clear, Normal Breath Sounds Cardiovascular: positive: S1, S2 Gastrointestinal/Abdominal: positive: Normal Bowel Sounds, Soft Musculoskeletal: positive: CVA Tenderness (L). negative: CVA Tenderness (R) ED Treatment Course - LABORATORY CBC & Chemistry Diagram: 06/14/18 03:38 06/14/18 03:38 Medical Decision Making - Medical Decision Making 06/14/18 02:48 63 year old female with reproducible positional L flank pain. VS unremarkable. H/o splenomegaly 2/2 to MDS. No GI/ symptoms. Low clinical suspicion for abdominal pathology, more likely referred pain 2/2 to splenomegaly. Will check basic labs, urine, and pain control. Reassess. 06/14/18 02:49 06/14/18 04:10 Patient reassessed @ bedside Symptomatically improved, requesting PO intake 06/14/18 04:12 WBC 10.7 (previous 20.3), other hematologic derangmeent likely 2/2 MDS CMP, UA pending 06/14/18 04:13 UA clean - less like pathology 06/14/18 04:51 Elevated LFT's c/w MDS 06/14/18 04:59 Case d/w patient's oncologist, Dr. Beverly - notes Hb drop to 8.5 (previous Hb 12.8 in 02/2018) likely 2/2 to progression of disease; agrees with pain management and d/c home; patient noted she has previously scheduled appointment for Thursday06/15/18. 06/14/18 05:12 Patient reassessed @ bedside, continues to c/o pain; will trial Lidocaine patch. Pending symptomatic pain improvement, will send home with Fentanyl, previously scheduled follow-up with oncology on Thursday. I discussed the physical exam findings, ancillary test results and final diagnoses with the patient. I answered all of the patient's questions. The patient was satisfied with the care received and felt comfortable with the discharge plan and treatment plan. The patient will return to the Emergency Department with any new, persistent or worsening symptoms. *DC/Admit/Observation/Transfer Diagnosis at time of Disposition: Pain - Discharge Dispostion Disposition: HOME Condition at time of disposition: Good Decision to Admit order: No - Prescriptions Prescriptions: Fentanyl 25 mcg TD ASDIR #10 patch.[id number] MDD 1 - Referrals - Patient Instructions Printed Discharge Instructions: DI for Prescription Opioid Use Additional Instructions: Please follow-up with Dr. Beverly as previously scheduled. We have sent a limited supply of pain medication to your pharmacy. Please follow-up with oncology for further pain management medications. Return to the Emergency Department for any new/worsening/concerning symptoms. - Post Discharge Activity
--- NOTE | 2018-06-14 02:26 | PDOC ---
Attending Attestation - Resident Resident Name: Ails Howell - ED Attending Attestation I have performed the following: I have examined & evaluated the patient, The case was reviewed & discussed with the resident, I agree w/resident's findings & plan - HPI HPI: 06/14/18 03:37 Pt comes with flank pain . She has a hx of MDS. She has no dysuria and she states that she has never had this type of pain in the past. - Physicial Exam PE: 06/14/18 05:24 Agree with resident exam. - Medical Decision Making 06/14/18 05:25 Pt hydrated in the ER and given antiemetics and pt will be sent home with pain meds. We spoke to her global sales director/oncologist who states that pt is stable to go home , as this is most likely progression of disease.
[2018-06-14 02:31] VITALS: BMI 20.1
[2018-06-14] MEDS ORDERED: FENTANYL PATCH WASTE MC PRN (02:46)
[2018-06-14] MEDS ORDERED: fentaNYL 12mcg/hr PATCH.TD72 TD SCH (03:00)
[2018-06-14] MEDS ORDERED: ACETAMINOPHEN 1000 MG/100 ML VIAL (NON FORMULARY) IVPB ONE (03:24)
[2018-06-14] MEDS ORDERED: ONDANSETRON 4 MG/2 ML VIAL IVPUSH ONE (03:41)
[2018-06-14] MEDS ORDERED: ACETAMINOPHEN INJECTION 100 ML IVPB ONE (03:43)
[2018-06-14 03:51] LABS: BASO % 0.4 % (0-2.0); EOS % 2.2 % (0-4.5); HEMATOCRIT 24.6 % (32.4-45.2); HEMOGLOBIN 8.5 GM/dL (10.7-15.3); LYMPH % 11.8 % (8-40); MCHC 34.6 g/dl (32.0-36.0); MEAN CELL VOLUME 104.2 fl (80-96); MEAN PLT VOLUME 8.1 fl (7.5-11.1); MONO % 44.5 % (3.8-10.2); NEUT % 41.1 % (42.8-82.8); PLATELET COUNT 96 K/MM3 (134-434); RBC 2.36 M/mm3 (3.60-5.2); RDW 17.2 % (11.6-15.6); WHITE BLOOD COUNT 10.7 K/mm3 (4.0-10.0)
[2018-06-14 04:04] LABS: EPI CELLS 2.8 /HPF (0-5/HPF); URINE APPEARANCE CLEAR; URINE BACTERIA 3.4 /hpf (NEGATIVE); URINE BILIRUBIN NEGATIVE (NEGATIVE); URINE CASTS 10 /lpf (0-8); URINE COLOR YELLOW; URINE GLUCOSE (UA) NEGATIVE (NEGATIVE); URINE KETONE NEGATIVE (NEGATIVE); URINE LEUK ESTERASE NEGATIVE (NEGATIVE); URINE NITRITE NEGATIVE (NEGATIVE); URINE PROTEIN NEGATIVE (NEGATIVE); URINE RBC 2 /hpf (0-4); URINE UROBILINOGEN 0.2 mg/dL (0.2-1.0); URINE WBC 2 /hpf (0-5)
[2018-06-14 04:16] LABS: ALBUMIN 4.4 g/dl (3.4-5.0); ALK PHOS 94 U/L (45-117); ANION GAP 7 MMOL/L (8-16); BILIRUBIN,TOTAL 0.2 mg/dL (0.2-1); BLOOD UREA NITROGEN 23 mg/dL (7-18); CALCIUM 10.6 mg/dL (8.5-10.1); CHLORIDE 109 mmol/L (98-107); CO2 25 mmol/L (21-32); CREATININE 1.2 mg/dL (0.55-1.3); GLUCOSE,RANDOM 101 mg/dL (74-106); POTASSIUM 4.3 mmol/L (3.5-5.1); SGOT/AST 66 U/L (15-37); SGPT/ALT 108 U/L (13-61); SODIUM 141 mmol/L (136-145)
[2018-06-14] MEDS ORDERED: LIDOCAINE 5% TOPICAL PATCH TP ONE (05:11)
[2018-06-14] MEDS ORDERED: LIDOCAINE 5% TOPICAL PATCH ONE (05:33)
[2018-06-14 05:51] VITALS: BP 136/72; PULSE 82; TEMP 98
[2018-06-14 17:21] LABS: ANISOCYTOSIS 1+; MACROCYTOSIS 1+; OVALOCYTE 1+
[2018-06-14 17:23] LABS: PLATELET ESTIMATE DECREASED
[2018-06-14] MEDS ORDERED: LIDOCAINE PATCH REMOVAL MC SCH (22:00)
== END 2018-06-14 05:51 | disposition home or self-care (01) ==
LOC: JER 02:08
DX: R10.32 Left lower quadrant pain (principal); D46.Z Other myelodysplastic syndromes
CPT/HCPCS: 36415; 80053; 81003; 85025; 87086; 99282-25; J0131

== ENCOUNTER 2018-06-15 17:57 | Emergency (ER) | payer OTHER ==
[2018-06-15] MEDS ORDERED: SODIUM CHLORIDE 1,000 ML IV STA (18:01)
[2018-06-15] MEDS ORDERED: ACETAMINOPHEN 1000 MG/100 ML VIAL (NON FORMULARY) IVPB ONE (18:01)
[2018-06-15 18:13] VITALS: BP 148/68; PULSE 88; TEMP 98.1
[2018-06-15 18:43] LABS: HEMOGLOBIN 7.6 GM/dl (10.7-15.3)
[2018-06-15 19:13] LABS: HEMATOCRIT 21.8 % (32.4-45.2); MCH 35.8 pg (25.7-33.7); MCHC 34.6 g/dl (32.0-36.0); MEAN CELL VOLUME 103.6 fl (80-96); MEAN PLT VOLUME 7.5 fl (7.5-11.1); PLATELET COUNT 86 K/MM3 (134-434); RBC 2.11 M/mm3 (3.60-5.2); RDW 16.4 % (11.6-15.6); WHITE BLOOD COUNT 12.6 K/mm3 (4.0-10.8)
[2018-06-15 19:17] LABS: INR 1.18 (0.82-1.09); PROTHROMBIN TIME (PATIENT) 13.2 SEC (10.2-13.0)
[2018-06-15 19:22] LABS: ALBUMIN 4.2 g/dl (3.4-5.0); ALK PHOS 64 U/L (45-117); ANION GAP 9 MMOL/L (8-16); BILIRUBIN,TOTAL 0.4 mg/dl (0.2-1); BLOOD UREA NITROGEN 23 mg/dl (7-18); CALCIUM 10.6 mg/dl (8.5-10); CHLORIDE 107 mmol/L (98-107); CO2 24 mmol/L (21-32); CREATININE 1.1 mg/dl (0.55-1.3); GLUCOSE,RANDOM 106 mg/dl (74-106); MAGNESIUM 1.9 mg/dL (1.8-2.4); POTASSIUM 4.2 mmol/L (3.5-5.1); SGOT/AST 66 U/L (15-37); SGPT/ALT 97 U/L (13-61); SODIUM 140 mmol/L (136-145)
--- NOTE | 2018-06-15 19:22 | PDOC ---
*Physical Exam - Vital Signs Last Vital Signs Temp Pulse Resp BP Pulse Ox 98.1 F 88 18 148/68 95 06/15/18 17:58 06/15/18 17:58 06/15/18 17:58 06/15/18 17:58 06/15/18 17:58 ED Treatment Course - LABORATORY CBC & Chemistry Diagram: 06/15/18 18:15 06/15/18 18:15 - ADDITIONAL ORDERS Additional order review: Laboratory Results 06/15/18 18:15 PT with INR 13.2 H INR 1.18 06/15/18 18:15 RBC 2.11 L MCV 103.6 H MCHC 34.6 RDW 16.4 H MPV 7.5 Neutrophils % No Result Required. Lymphocytes % No Result Required. - Medications Given in the ED: ED Medications Discontinued Medications Generic Name Dose Route Start Last Admin Trade Name Shiva PRN Reason Stop Dose Admin Acetaminophen 1,000 mg 06/15/18 18:01 06/15/18 18:48 Ofirmev Injection - IVPB 06/15/18 18:02 Not Given ONCE ONE Sodium Chloride 1,000 mls @ 1,000 mls/hr 06/15/18 18:01 06/15/18 18:58 Normal Saline - IV 06/15/18 19:00 1,000 mls/hr ASDIR STA Administration Progress Note - Progress Note Progress Note: Care of this patient was transferred to mi from Dr. Gaspar at 1900 hrs. Patient is a 63-year-old female with history of myelofibrosis who is currently experiencing a flare of her symptoms. Patient was sent in by her primary care doctor for a workup including CT of her abdomen and pelvis. Plan is to follow up on the labs that are still pending as well as a CAT scan and then discuss her workup with her doctor and make a decision in conjunction with her hematology doctor Dr. Beverly. 21:50 Patient's CAT scan was unremarkable for any new or significant pathology Patient's labs were essentially normal with the exception of a 12.6 white count but no left shift patient's labs appear to be at their baseline Discussed with Dr. Beverly and he recommends the patient be discharged home and will follow-up with him tomorrow *DC/Admit/Observation/Transfer Diagnosis at time of Disposition: Myelofibrosis - Discharge Dispostion Disposition: HOME Condition at time of disposition: Fair Decision to Admit order: No - Referrals - Patient Instructions Additional Instructions: Continue to take all your medications as prescribed. Return to the emergency department immediately with ANY new, persistent or worsening symptoms. Continue any medications as previously prescribed by your physician. You should follow up with your primary doctor as soon as possible regarding today's emergency department visit. . Please make sure your doctor reviews the results of your emergency evaluation. Thank you for coming to the Emergency Department today for your care. It was a pleasure to see you today. Please note that your evaluation is INCOMPLETE until you follow-up with your doctor. - Post Discharge Activity
[2018-06-15 20:56] LABS: LIPASE 108 U/L (73-393)
[2018-06-15 22:30] LABS: ANISOCYTOSIS 1+; MACROCYTOSIS 1+; PLATELET ESTIMATE DECREASED
--- NOTE | 2018-06-16 08:25 | EKG ---
Test Reason : Blood Pressure : / mmHG Vent. Rate : 087 BPM Atrial Rate : 087 BPM P-R Int : 176 ms QRS Dur : 084 ms QT Int : 348 ms P-R-T Axes : 056 038 090 degrees QTc Int : 418 ms NORMAL SINUS RHYTHM POSSIBLE LEFT ATRIAL ENLARGEMENT NONSPECIFIC T WAVE ABNORMALITY ABNORMAL ECG WHEN COMPARED WITH ECG OF 31-MAR-2018 09:12, NONSPECIFIC T WAVE ABNORMALITY NOW EVIDENT IN INFERIOR LEADS NONSPECIFIC T WAVE ABNORMALITY, WORSE IN LATERAL LEADS Confirmed by DALILA BOYCE, BRETT ([id number]) on 06/16/2018 8:25:03 AM Referred By: DR MIMS Confirmed By:BRETT CONNER MD
== END 2018-06-15 22:06 | disposition home or self-care (01) ==
LOC: FER 17:57
PROC: 3E0337Z Introduction of Electrolytic and Water Balance Substance into Peripheral Vein, Percutaneous Approach (ICD-10-PCS; principal; 2018-06-15)
DX: D75.81 Myelofibrosis (principal)
CPT/HCPCS: 36415; 74177-TC; 80053; 83605; 83690; 83735; 85025; 85610; 93005; 99283-25; J7030